=== PATIENT | male | born 1990 | race Two or more races ===

== ENCOUNTER 2021-01-15 21:24 | Emergency (ER) | payer OTHER ==
[~2021-01-15] VITALS: Ht 175.3 cm; Wt 195.4 kg
[2021-01-15 23:17] VITALS: BP 135/72
== END 2021-01-15 23:33 | disposition home or self-care (01) ==
LOC: EMS 21:26
DX: S80.261A Insect bite (nonvenomous), right knee, initial encounter (principal); S80.861A Insect bite (nonvenomous), right lower leg, initial encounter; L03.115 Cellulitis of right lower limb; F17.210 Nicotine dependence, cigarettes, uncomplicated; W57.XXXA Bitten or stung by nonvenomous insect and other nonvenomous arthropods, initial encounter; Y93.89 Activity, other specified; Y92.89 Other specified places as the place of occurrence of the external cause; Y99.8 Other external cause status
CPT/HCPCS: 99281; Z7502

== ENCOUNTER 2022-05-11 13:53 | Emergency (ER) | payer OTHER ==
[~2022-05-11] VITALS: Ht 175.3 cm; Wt 204.0 kg
[2022-05-11 15:42] VITALS: BP 140/70
== END 2022-05-11 16:13 | disposition home or self-care (01) ==
LOC: EMS 14:00
DX: F10.10 Alcohol abuse, uncomplicated (principal); F15.10 Other stimulant abuse, uncomplicated; E11.9 Type 2 diabetes mellitus without complications; E66.01 Morbid (severe) obesity due to excess calories; F17.210 Nicotine dependence, cigarettes, uncomplicated; Z91.013 Allergy to seafood
CPT/HCPCS: 82962; 99282